=== PATIENT | female | born 1970 | race Caucasian/White ===

== ENCOUNTER 2016-05-02 15:22 | Emergency (ER) | payer OTHER ==
[2016-05-02 16:10] VITALS: BP 139/86
--- NOTE | 2016-05-02 16:58 | UC ---
Back Pain HPI - HPI Summary HPI Summary: 45 yo female with chronic lower back and pelvis pain Discharged from pain specialist requests percocets which she says are the only thing that helps Had CT of abd and pelvis today pain has been present for years states she is seen often by diamond powder mixer (Dr. Moran) and has had a pelvic exam < 6 mos ago has chronic issues starting stream of urine and has lower abd pain while voiding - History of Current Complaint Chief Complaint: UCGU Stated Complaint: ABD & BACK PAIN Time Seen by Provider: 05/02/16 16:07 Hx Obtained From: Patient Hx Last Menstrual Period: 09/21 Onset/Duration: Gradual Onset, Lasting Weeks - years Timing: Constant Severity Initially: Severe Severity Currently: Severe Pain Intensity: 10 Pain Scale Used: 0-10 Numeric Back Pain: Is Diffuse - band like across lower back into pelvis Character: Aching, Throbbing Aggravating: Movement Alleviating: Nothing - but percocet Associated Signs And Symptoms: Negative: Swelling, Redness, Bruising, Fever, Weakness, Numbness, Tingling, Abdominal Pain, Flank Pain, Bladder Incontinence, Bowel Incontinence, Weight Loss, Pain with Weight Bearing - Allergies/Home Medications Allergies/Adverse Reactions: Allergies Allergy/AdvReac Type Severity Reaction Status Date / Time Cefuroxime [From Ceftin] Allergy Rash Verified 05/02/16 16:09 Cephalexin [From Keflex] Allergy Rash Verified 05/02/16 16:09 Nitrofurantoin Allergy Rash Verified 05/02/16 16:09 [From Macrodantin] Sulfa Antibiotics Allergy Hives Verified 05/02/16 16:09 Meperidine [From Demerol HCl] AdvReac Dizziness Verified 05/02/16 16:09 Morphine AdvReac Nausea Verified 05/02/16 16:09 PMH/Surg Hx/FS Hx/Imm Hx Previously Healthy: Yes Endocrine History Of: Reports: Thyroid Disease Denies: Diabetes Cardiovascular History Of: Denies: Cardiac Disorders, Hypertension, Pacemaker/ICD Respiratory History Of: Denies: COPD, Asthma GI/ History Of: Denies: Ulcer, Renal Disease Psychological History Of: Reports: Anxiety, Depression - Surgical History Surgical History: Yes Surgery Procedure, Year, and Place: , LEFT OVARIAN TUMOR REMOVAL/ PARTIAL LEFT OVARY REMOVAL 01/2013, 08/26/14 SUPRACERVICAL HYSTERECTOMY - Family History Known Family History: Positive: Hypertension - Social History Alcohol Use: None Substance Use Type: None Smoking Status (MU): Former Smoker Type: Cigarettes Length of Time of Smoking/Using Tobacco: 3 YRS Have You Smoked in the Last Year: No When Did the Patient Quit Smoking/Using Tobacco: 1989 - Immunization History Most Recent Influenza Vaccination: NONE Most Recent Tetanus Shot: WITHIN 10 YEARS Most Recent Pneumonia Vaccination: NONE Review of Systems Constitutional: Negative Skin: Negative Eyes: Negative ENT: Negative Respiratory: Negative Cardiovascular: Negative Gastrointestinal: Negative Genitourinary: Negative Motor: Negative Neurovascular: Negative Musculoskeletal: Arthralgia, Myalgia Neurological: Negative Psychological: Negative All Other Systems Reviewed And Are Negative: Yes Physical Exam Triage Information Reviewed: Yes Appearance: Well-Appearing, No Pain Distress, Well-Nourished Vital Signs: Initial Vital Signs Temp 99.2 F 05/02/16 15:58 Pulse 57 05/02/16 15:58 Resp 16 05/02/16 15:58 BP 139/86 05/02/16 15:58 Pulse Ox 99 05/02/16 15:58 Vital Signs Reviewed: Yes Eyes: Positive: Conjunctiva Clear ENT: Positive: Hearing grossly normal. Negative: Nasal congestion, Trismus, Muffled/hoarse voice Dental: Negative: Abscess @ Neck: Positive: Supple, Nontender, No Lymphadenopathy Respiratory: Positive: Lungs clear, Normal breath sounds, No respiratory distress, No accessory muscle use Cardiovascular: Positive: RRR, No Murmur Abdomen Description: Positive: Nontender, Soft. Negative: CVA Tenderness (R), CVA Tenderness (L), Distended, Guarding, Hepatomegaly, Peritoneal Signs, Splenomegaly Musculoskeletal: Positive: ROM Intact, No Edema Neurological: Positive: Alert Psychological: Positive: Normal Response To Family Skin Exam: Normal Skin: Positive: rashes Back Pain Course/Dx - Course Course Of Treatment: I suggestted many non narcotic meds most of which she declined stating they don't work. - Differential Dx/Diagnosis Provider Diagnoses: chronic back and pelvic pain of uncertain cause. trouble voiding Discharge - Discharge Plan Condition: Stable Disposition: HOME Prescriptions: Amitriptyline HCl [Elavil] 25 mg PO BEDTIME #14 tab Meloxicam [Mobic] 15 mg PO DAILY #14 tab Patient Education Materials: Pelvic Pain in Women (ED), Chronic Back Pain (ED) Referrals: Masoud Fierro MD [Medical Doctor] - 2 Weeks (see about your urinary issues/ trouble starting stream) Additional Instructions: TO ER FOR NEW or worsening symptoms
== END 2016-05-02 17:07 | disposition home or self-care (01) ==
LOC: UCEAST 15:22
DX: M54.5 Low back pain (principal); R10.2 Pelvic and perineal pain; R39.198 Other difficulties with micturition; Z88.6 Allergy status to analgesic agent; Z88.1 Allergy status to other antibiotic agents; Z88.2 Allergy status to sulfonamides; Z87.891 Personal history of nicotine dependence
CPT/HCPCS: 81002; 99212; G0463

== ENCOUNTER 2017-01-24 13:47 | Emergency (ER) | payer OTHER ==
[2017-01-24 13:53] VITALS: BP 105/64
--- NOTE | 2017-01-24 16:17 | ED ---
Back Pain - HPI Summary HPI Summary: 46F presents with back pain for two years. She states that she has had back pain since she had a hyserectomy two years ago. She has been seen by neurosurgery and by pain management. she was discharged from pain management. Has had MRI and CT scan on back with most recent 4 months ago. no new injury since then. She states pain is bad but has not change recently. Her pain is greatest on left side and radiates down left leg. no numbness or tingling. no loss of bowel or bladder or saddle anaesthesia. no fever. is only taking ibuprofen for pain. able to ambulate. has not seen PT. - History of Current Complaint Chief Complaint: EDAbdPain Stated Complaint: LOWER BACK & ABD PAIN Time Seen by Provider: 01/24/17 15:08 Hx Last Menstrual Period: 09/21 Pain Intensity: 9 - Allergies/Home Medications Allergies/Adverse Reactions: Allergies Allergy/AdvReac Type Severity Reaction Status Date / Time Cefuroxime [From Ceftin] Allergy Rash Verified 01/24/17 13:54 Cephalexin [From Keflex] Allergy Rash Verified 01/24/17 13:54 Nitrofurantoin Allergy Rash Verified 01/24/17 13:54 [From Macrodantin] Sulfa Antibiotics Allergy Hives Verified 01/24/17 13:54 Meperidine [From Demerol HCl] AdvReac Dizziness Verified 01/24/17 13:54 Morphine AdvReac Nausea Verified 01/24/17 13:54 PMH/Surg Hx/FS Hx/Imm Hx Endocrine/Hematology History: Reports: Hx Thyroid Disease, Hx Anemia - ON IRON Denies: Hx Diabetes Cardiovascular History: Denies: Hx Hypertension, Hx Pacemaker/ICD Respiratory History: Denies: Hx Asthma, Hx Chronic Obstructive Pulmonary Disease (COPD) GI History: Reports: Other GI Disorders - COLITIS Denies: Hx Ulcer History: Denies: Hx Renal Disease Musculoskeletal History: Reports: Hx Arthritis - NECK Denies: Hx Scoliosis Sensory History: Denies: Hx Contacts or Glasses, Hx Hearing Aid Opthamlomology History: Denies: Hx Contacts or Glasses Psychiatric History: Reports: Hx Anxiety, Hx Depression, Hx Panic Disorder - Surgical History Surgery Procedure, Year, and Place: , LEFT OVARIAN TUMOR REMOVAL/ PARTIAL LEFT OVARY REMOVAL 01/2013, 08/26/14 SUPRACERVICAL HYSTERECTOMY Hx Anesthesia Reactions: No Infectious Disease History: No Infectious Disease History: Reports: Hx of Known/Suspected MRSA Denies: Hx Hepatitis, Hx Human Immunodeficiency Virus (HIV), Traveled Outside the [place] in Last 30 Days - Family History Known Family History: Positive: Hypertension - Social History Alcohol Use: Rare Substance Use Type: Reports: None Smoking Status (MU): Former Smoker Type: Cigarettes Length of Time of Smoking/Using Tobacco: 3 YRS Have You Smoked in the Last Year: No Review of Systems Negative: Fever Negative: Chest Pain Negative: Shortness Of Breath Positive: Myalgia - back pain All Other Systems Reviewed And Are Negative: Yes Physical Exam Triage Information Reviewed: Yes Vital Signs On Initial Exam: Initial Vitals Temp Pulse Resp BP Pulse Ox 96.9 F 60 16 105/64 98 01/24/17 13:48 01/24/17 13:48 01/24/17 13:48 01/24/17 13:48 01/24/17 13:48 Vital Signs Reviewed: Yes Appearance: Positive: Well-Appearing - in no pain distress Skin: Positive: Warm, Dry Head/Face: Positive: Normal Head/Face Inspection Eyes: Positive: Normal, Conjunctiva Clear Respiratory/Lung Sounds: Positive: Clear to Auscultation, Breath Sounds Present Cardiovascular: Positive: Normal, RRR Musculoskeletal: Positive: Strength/ROM Intact - back, Other - tender over L3-L4 , neg SLR, good pulses Neurological: Positive: Reflexes Intact - patella Psychiatric: Positive: Normal - Lizz Coma Scale Coma Scale Total: 15 Diagnostics - Vital Signs Vital Signs Temp Pulse Resp BP Pulse Ox 01/24/17 13:48 96.9 F 60 16 105/64 98 - Laboratory Lab Statement: Any lab studies that have been ordered have been reviewed, and results considered in the medical decision making process. Back Pain Course/Dx - Course Course Of Treatment: 46F presents with back pain for two years. She states that she has had back pain since she had a hyserectomy two years ago. She has been seen by neurosurgery and by pain management. she was discharged from pain management. Has had MRI and CT scan on back with most recent 4 months ago. no new injury since then. She states pain is bad but has not change recently. Her pain is greatest on left side and radiates down left leg. no numbness or tingling. no loss of bowel or bladder or saddle anaesthesia. no fever. is only taking ibuprofen for pain. able to ambulate. has not seen PT. on exam tenderness lower back L3-L4, neg SLR. discussed that will not prescribe pain medication for this due to being chronic issue. does not want repeat imaging. will try steriod and muscle relaxer. patient understands and agrees with plan. - Diagnoses Differential Diagnosis/HQI/PQRI: Positive: Herniated Disc, Strain, Sprain Provider Diagnoses: Back pain Discharge - Discharge Plan Condition: Good Disposition: HOME Prescriptions: Cyclobenzaprine TAB* [Flexeril 10 MG TAB*] 10 mg PO TID PRN #15 tab PRN Reason: Pain Methylprednisolone [Medrol Dosepak 4 MG*] 4 mg PO .SEE JERARDO INSTRUCTION #1 packet Patient Education Materials: Back Pain (ED) Referrals: [facility] [Provider Group] Ian Churchill MD [Primary Care Provider] - Additional Instructions: Follow directions on package for Medrol pack Take muscle relaxers three times a day Use ibuprofen or Tylenol for pain every 6 hours ice/heat area, move as much as possible Follow up with primary within 5 days Return to ED if develop any new or worsening symptoms
[2017-01-24 16:26] LABS: Urine Bilirubin Negative (Negative); Urine Glucose Negative (Negative); Urine Nitrite Negative (Negative)
== END 2017-01-24 16:28 | disposition home or self-care (01) ==
LOC: ED 13:47
DX: M54.9 Dorsalgia, unspecified (principal); Z87.891 Personal history of nicotine dependence
CPT/HCPCS: 81003; 99282

== ENCOUNTER → 2018-03-07 14:59 | Emergency (ER) | payer OTHER ==
[~2018-03-07 14:59] MED LIST: Fluconazole 100 MG TAB* TAB PO ONE
[2018-03-07 15:48] LABS: ABS Basophils 0 10^3/ul (0-0.2); ABS Eosinophils 0 10^3/ul (0-0.6); ABS Lymphocytes 2.2 10^3/ul (1.0-4.8); ABS Monocytes 0.6 10^3/ul (0-0.8); ABS Neutrophils 6.5 10^3/ul (1.5-7.7); ABS Nucleated RBC 0 10^3/ul; Eosinophil % 0.4 % (0-6); Hematocrit 39 % (35-47); Hemoglobin 13.5 g/dl (12.0-16.0); Lymphocyte % 23.4 % (25-47); Mean Corpuscular HGB Conc 34 g/dl (31-36); Mean Corpuscular Hemoglobin 33 pg (27-31); Mean Corpuscular Volume 97 fL (80-97); Mean Platelet Volume 9.1 fL (7.4-10.4); Nucleated Red Blood Cells % 0; Platelet Count 176 10^3/ul (150-450); Red Blood Count 4.04 10^6/ul (4.00-5.40); Red Cell Distribution Width 13 % (10.5-15); White Blood Count 9.4 10^3/ul (3.5-10.8)
--- NOTE | 2018-03-07 15:53 | ED ---
GI/ HPI - HPI Summary HPI Summary: 47-year-old female presents with vaginal discharge the past couple months. She states that [facility] with [facility]. States that they do cultures and comes back positive for trichomoniasis. She states she is currently on metronidazole for the past week for the Trichomonas. She states she took an increased dose the previous time she took it. She should follow-up with Dr. Carson on Friday. She states she's been having abdominal pain. No nausea vomiting. No urinary symptoms. No diarrhea constipation. 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 She states she has been sexually active once in the past couple months. - History of Current Complaint Chief Complaint: EDUrogenitalProblems Time Seen by Provider: 03/07/18 15:40 Stated Complaint: ABD PAIN Hx Last Menstrual Period: 09/21 Pain Intensity: 10 - Allergy/Home Medications Allergies/Adverse Reactions: Allergies Allergy/AdvReac Type Severity Reaction Status Date / Time cefuroxime [From Ceftin] Allergy Rash Verified 03/07/18 16:23 cephalexin [From Keflex] Allergy Rash Verified 03/07/18 16:23 meperidine [From Demerol] Allergy Dizziness Verified 03/07/18 16:23 morphine Allergy Nausea Verified 03/07/18 16:23 nitrofurantoin Allergy Rash Verified 03/07/18 16:23 [From Macrodantin] Sulfa (Sulfonamide Allergy Hives Verified 03/07/18 16:23 Antibiotics) PMH/Surg Hx/FS Hx/Imm Hx Endocrine/Hematology History: Reports: Hx Thyroid Disease, Hx Anemia - ON IRON Denies: Hx Diabetes Cardiovascular History: Denies: Hx Hypertension, Hx Pacemaker/ICD Respiratory History: Denies: Hx Asthma, Hx Chronic Obstructive Pulmonary Disease (COPD) GI History: Reports: Other GI Disorders - COLITIS Denies: Hx Ulcer History: Denies: Hx Renal Disease Musculoskeletal History: Reports: Hx Arthritis - NECK Denies: Hx Scoliosis Sensory History: Denies: Hx Contacts or Glasses, Hx Hearing Aid Opthamlomology History: Denies: Hx Contacts or Glasses Psychiatric History: Reports: Hx Anxiety, Hx Depression, Hx Panic Disorder - Surgical History Surgery Procedure, Year, and Place: , LEFT OVARIAN TUMOR REMOVAL/ PARTIAL LEFT OVARY REMOVAL 01/2013, 08/26/14 SUPRACERVICAL HYSTERECTOMY Hx Anesthesia Reactions: No Infectious Disease History: No Infectious Disease History: Reports: Hx of Known/Suspected MRSA Denies: Hx Hepatitis, Hx Human Immunodeficiency Virus (HIV), Traveled Outside the [place] in Last 30 Days - Family History Known Family History: Positive: Hypertension - Social History Alcohol Use: Rare Substance Use Type: Reports: None Smoking Status (MU): Former Smoker Type: Cigarettes Length of Time of Smoking/Using Tobacco: 3 YRS Have You Smoked in the Last Year: No Review of Systems Negative: Fever Negative: Chest Pain Negative: Shortness Of Breath Positive: Abdominal Pain, Other - vaginal discharge All Other Systems Reviewed And Are Negative: Yes Physical Exam Triage Information Reviewed: Yes Vital Signs On Initial Exam: Initial Vitals Temp Pulse Resp BP Pulse Ox 97.8 F 71 20 95/52 99 03/07/18 15:00 03/07/18 15:00 03/07/18 15:00 03/07/18 15:00 03/07/18 15:00 Vital Signs Reviewed: Yes Appearance: Positive: Well-Appearing Skin: Positive: Warm, Dry Head/Face: Positive: Normal Head/Face Inspection Eyes: Positive: Normal, Conjunctiva Clear ENT: Positive: Pharynx normal Respiratory/Lung Sounds: Positive: Clear to Auscultation, Breath Sounds Present Cardiovascular: Positive: Normal, RRR Abdomen Description: Positive: Nontender, Soft Bowel Sounds: Positive: Present Pelvic Exam: Positive: External Exam Normal, Bimanual Exam Normal, No Cerv. Motion Tender, Discharge - white. Negative: Tender Adnexa, Tender Uterus Musculoskeletal: Positive: Normal Neurological: Positive: Normal, Disoriented Diagnostics - Vital Signs Vital Signs Temp Pulse Resp BP Pulse Ox 03/07/18 15:00 97.8 F 71 20 95/52 99 - Laboratory Lab Results: Lab Results 03/07/18 Range/Units 15:33 WBC 9.4 (3.5-10.8) 10^3/ul RBC 4.04 (4.00-5.40) 10^6/ul Hgb 13.5 (12.0-16.0) g/dl Hct 39 (35-47) % MCV 97 (80-97) fL MCH 33 H (27-31) pg MCHC 34 (31-36) g/dl RDW 13 (10.5-15) % Plt Count 176 (150-450) 10^3/ul MPV 9.1 (7.4-10.4) fL Neut % (Auto) 69.6 (38-83) % Lymph % (Auto) 23.4 L (25-47) % [place] % (Auto) 6.2 (0-7) % Eos % (Auto) 0.4 (0-6) % Baso % (Auto) 0.4 (0-2) % Absolute Neuts (auto) 6.5 (1.5-7.7) 10^3/ul Absolute Lymphs (auto) 2.2 (1.0-4.8) 10^3/ul Absolute Monos (auto) 0.6 (0-0.8) 10^3/ul Absolute Eos (auto) 0 (0-0.6) 10^3/ul Absolute Basos (auto) 0 (0-0.2) 10^3/ul Absolute Nucleated RBC 0 10^3/ul Nucleated RBC % 0 Result Diagrams: 03/07/18 15:33 03/07/18 15:33 Lab Statement: Any lab studies that have been ordered have been reviewed, and results considered in the medical decision making process. GIGU Course/Dx - Course Course Of Treatment: 47-year-old female presents with vaginal discharge the past couple months. She states that she [facility] with [facility]. States that they do cultures and comes back positive for trichomoniasis. She states she is currently on metronidazole for the past week for the Trichomonas. She states she took an increased dose the previous time she took it. She should follow-up with Dr. Carson on Friday. She states she's been having abdominal pain. No nausea vomiting. No urinary symptoms. No diarrhea constipation. 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 She states she has been sexually active once in the past couple months. on exam nontender abd. has whitish foul smelling discharge. sent cultures but will not be done till friday. told the lab to culture the trich. explained that wbc and crp normal and no CMT so will just give dose of diflucain as with multiple antibiotics likely has a yeast infection on top. told to keep appointment with infectious disease as should have culture results by then to treat her. patient understand and agrees with plan. - Diagnoses Differential Diagnoses - Female: Pelvic Inflammatory Disease, STD, Urinary Tract Infection Provider Diagnoses: Vaginal discharge Discharge - Sign-Out/Discharge Documenting (check all that apply): Patient Departure - Discharge Plan Condition: Good Disposition: HOME Referrals: Ian Churchill MD [Primary Care Provider] - Additional Instructions: Follow up with dr cavanaugh as scheduled Return to ED if develop fever, persistent vomiting or any new or worsening symptoms - Billing Disposition and Condition Condition: GOOD Disposition: Home
[2018-03-07 16:06] LABS: EGFR Non-African American 86.8 (>60)
[2018-03-07 16:13] LABS: Urine Appearance Clear; Urine Blood Negative (Negative); Urine Color Straw; Urine Ketones Negative (Negative); Urine Protein Negative (Negative); Urine Urobilinogen Negative (Negative)
[2018-03-07 17:08] VITALS: BP 103/60
--- NOTE | 2018-03-09 08:49 | PN ---
Progress Note - Progress Note Date of Service: 03/07/18 Note: Patient has been taking metronidazole 1 week for positive Trichomonas She is now also positive for Gardnerella. She will continue to take her at home medication of metronidazole for treatment She is to follow-up with Dr. Rodríguez on Friday and understands this
--- NOTE | 2018-03-09 10:27 | PN ---
Progress Note - Progress Note Date of Service: 03/07/18 Note: Patient returned phone call at 10:30 AM. Patient is made aware of positive Gardnerella and positive Trichomonas. She states her metronidazole that she has been taking has been upsetting her stomach and she would no longer like to take this. She has an appointment with Dr. Rodríguez tomorrow. She is encouraged to not take any medications until she speaks with Dr. Rodríguez tomorrow.
== END | disposition home or self-care (01) ==
LOC: ED 14:59
DX: A59.01 Trichomonal vulvovaginitis (principal); E07.9 Disorder of thyroid, unspecified; D64.9 Anemia, unspecified; F32.9 Major depressive disorder, single episode, unspecified; F41.9 Anxiety disorder, unspecified; Z87.891 Personal history of nicotine dependence; B96.89 Other specified bacterial agents as the cause of diseases classified elsewhere
CPT/HCPCS: 36415; 80053; 81003; 83690; 84702; 85025; 86140; 87070; 87077; 87480; 87491; 87510; 87591; 87660; 99282; A9270-GY

== ENCOUNTER 2018-05-04 15:46 | Emergency (ER) | payer OTHER ==
[2018-05-04 18:22] LABS: ABS Basophils 0 10^3/ul (0-0.2); ABS Eosinophils 0.1 10^3/ul (0-0.6); ABS Lymphocytes 2.6 10^3/ul (1.0-4.8); ABS Monocytes 0.6 10^3/ul (0-0.8); ABS Neutrophils 5.2 10^3/ul (1.5-7.7); ABS Nucleated RBC 0 10^3/ul; Hematocrit 37 % (35-47); Hemoglobin 12.7 g/dl (12.0-16.0); Lymphocyte % 30.2 %; Mean Corpuscular HGB Conc 34 g/dl (31-36); Mean Corpuscular Hemoglobin 33 pg (27-31); Mean Corpuscular Volume 96 fL (80-97); Mean Platelet Volume 8.9 fL (7.4-10.4); Nucleated Red Blood Cells % 0; Platelet Count 161 10^3/ul (150-450); Red Blood Count 3.83 10^6/ul (4.00-5.40); Red Cell Distribution Width 12 % (10.5-15); White Blood Count 8.5 10^3/ul (3.5-10.8)
[2018-05-04 18:41] LABS: ALT 10 U/L (7-52); AST 12 U/L (13-39); Albumin 4.3 g/dL (3.2-5.2); Alkaline Phosphatase 33 U/L (34-104); Anion Gap 5 mmol/L (2-11); BUN/Creatinine Ratio 22.4 (8-20); Blood Urea Nitrogen 15 mg/dL (6-24); C Reactive Protein < 1.00 mg/L (<8.01); CO2 Carbon Dioxide 27 mmol/L (22-32); Calcium 8.9 mg/dL (8.6-10.3); Chloride 106 mmol/L (101-111); EGFR Non-African American 94.3 (>60); Globulin 2.1 g/dL (2-4); Glucose 99 mg/dL (70-100); Potassium 3.5 mmol/L (3.5-5.0); Sodium 138 mmol/L (135-145); Total Protein 6.4 g/dL (6.4-8.9)
[2018-05-04 18:47] LABS: HCG Pregnancy < 0.60 mIU/mL
[2018-05-04] MEDS ORDERED: Iohexol 300* (CONTRAST) 10 ML SDV IV ONE (19:18)
--- NOTE | 2018-05-04 21:41 | ED ---
Abdominal Pain/Female - HPI Summary HPI Summary: Patient complains of acute on chronic lower abdominal pain, recurrent trichomonas infections, current BV infection. Abdominal pain described as constant, sharp, bilateral lower abdomen, associated with nausea. Also complains of vaginal discharge and pain. Denies fever, cough, sore throat, CP, SOB, V/D, change in urine, change in BM. Patient states chronic lower abdominal pain since hysterectomy 3 years ago. States recurrent trichomonas infection 2 months despite multiple courses of antibiotics. Patient has been evaluated by [facility]EL[facility], by GI, by Dr. Alli JEFFREY. Medical history is hypothyroid. Abdominal surgical history is . - History of Current Complaint Chief Complaint: EDAbdPain Stated Complaint: ABD PAIN Time Seen by Provider: 05/04/18 17:08 Hx Obtained From: Patient Hx Last Menstrual Period: 09/21 Onset/Duration: Other Timing: Constant Severity Initially: Severe Severity Currently: Severe Pain Intensity: 10 Pain Scale Used: 0-10 Numeric Location: Discrete At: RLQ, Discrete At: LLQ, Suprapubic Radiates: No Character: Sharp Aggravating Factor(s): Movement Alleviating Factor(s): Nothing Associated Signs and Symptoms: Positive: Vaginal Discharge, Nausea Allergies/Adverse Reactions: Allergies Allergy/AdvReac Type Severity Reaction Status Date / Time cefuroxime [From Ceftin] Allergy Rash Verified 05/04/18 15:54 cephalexin [From Keflex] Allergy Rash Verified 05/04/18 15:54 meperidine [From Demerol] Allergy Dizziness Verified 05/04/18 15:54 morphine Allergy Nausea Verified 05/04/18 15:54 nitrofurantoin Allergy Rash Verified 05/04/18 15:54 [From Macrodantin] Sulfa (Sulfonamide Allergy Hives Verified 05/04/18 15:54 Antibiotics) PMH/Surg Hx/FS Hx/Imm Hx Endocrine/Hematology History: Reports: Hx Thyroid Disease, Hx Anemia - ON IRON Denies: Hx Diabetes Cardiovascular History: Denies: Hx Hypertension, Hx Pacemaker/ICD Respiratory History: Denies: Hx Asthma, Hx Chronic Obstructive Pulmonary Disease (COPD) GI History: Reports: Other GI Disorders - COLITIS Denies: Hx Ulcer History: Denies: Hx Renal Disease Musculoskeletal History: Reports: Hx Arthritis - NECK Denies: Hx Scoliosis Sensory History: Denies: Hx Contacts or Glasses, Hx Hearing Aid Opthamlomology History: Denies: Hx Contacts or Glasses Psychiatric History: Reports: Hx Anxiety, Hx Depression, Hx Panic Disorder - Surgical History Surgery Procedure, Year, and Place: , LEFT OVARIAN TUMOR REMOVAL/ PARTIAL LEFT OVARY REMOVAL 01/2013, 08/26/14 SUPRACERVICAL HYSTERECTOMY Hx Anesthesia Reactions: No Infectious Disease History: No Infectious Disease History: Reports: Hx of Known/Suspected MRSA Denies: Hx Hepatitis, Hx Human Immunodeficiency Virus (HIV), Traveled Outside the [place] in Last 30 Days - Family History Known Family History: Positive: Hypertension - Social History Alcohol Use: Rare Substance Use Type: Reports: None Smoking Status (MU): Former Smoker Type: Cigarettes Length of Time of Smoking/Using Tobacco: 3 YRS Have You Smoked in the Last Year: No Review of Systems Constitutional: Negative Eyes: Negative ENT: Negative Cardiovascular: Negative Respiratory: Negative Positive: Abdominal Pain, Nausea Genitourinary: Negative Musculoskeletal: Negative Skin: Negative Neurological: Negative Psychological: Normal All Other Systems Reviewed And Are Negative: Yes Physical Exam - Summary Physical Exam Summary: Lower abdomen tender bilaterally. Abdominal exam otherwise unremarkable. Pelvic exam remarkable for pain during exam and greenish yellow discharge. Pelvic exam otherwise unremarkable. Triage Information Reviewed: Yes Vital Signs On Initial Exam: Initial Vitals Temp Pulse Resp BP Pulse Ox 98.3 F 65 15 99/72 100 05/04/18 15:50 05/04/18 15:50 05/04/18 15:50 05/04/18 15:50 05/04/18 15:50 Vital Signs Reviewed: Yes Appearance: Positive: Well-Appearing Skin: Positive: Warm Head/Face: Positive: Normal Head/Face Inspection Eyes: Positive: Normal Neck: Positive: Supple Respiratory/Lung Sounds: Positive: Clear to Auscultation Cardiovascular: Positive: Normal Abdomen Description: Positive: Other: Pelvic Exam: Positive: External Exam Normal, No Cerv. Motion Tender, No Masses, Discharge, Tender Adnexa. Negative: Active Bleeding, Blood, Cervicitis, Lesions , Mass, Tender w/ Cervical Motion, Tender Uterus, Ulcers Musculoskeletal: Positive: Normal Neurological: Positive: Normal Psychiatric: Positive: Normal AVPU Assessment: Alert - [place] Coma Scale Best Eye Response: 4 - Spontaneous Best Motor Response: 6 - Obeys Commands Best Verbal Response: 5 - Oriented Coma Scale Total: 15 Diagnostics - Vital Signs Vital Signs Temp Pulse Resp BP Pulse Ox 01/14/19 15:50 98.3 F 65 15 99/72 100 - Laboratory Lab Results: Lab Results 05/04/18 05/04/18 Range/Units 18:15 18:15 WBC 8.5 (3.5-10.8) 10^3/ul RBC 3.83 L (4.00-5.40) 10^6/ul Hgb 12.7 (12.0-16.0) g/dl Hct 37 (35-47) % MCV 96 (80-97) fL MCH 33 H (27-31) pg MCHC 34 (31-36) g/dl RDW 12 (10.5-15) % Plt Count 161 (150-450) 10^3/ul MPV 8.9 (7.4-10.4) fL Neut % (Auto) 60.9 % Lymph % (Auto) 30.2 % [place] % (Auto) 7.5 % Eos % (Auto) 1.0 % Baso % (Auto) 0.4 % Absolute Neuts (auto) 5.2 (1.5-7.7) 10^3/ul Absolute Lymphs (auto) 2.6 (1.0-4.8) 10^3/ul Absolute Monos (auto) 0.6 (0-0.8) 10^3/ul Absolute Eos (auto) 0.1 (0-0.6) 10^3/ul Absolute Basos (auto) 0 (0-0.2) 10^3/ul Absolute Nucleated RBC 0 10^3/ul Nucleated RBC % 0 Sodium 138 (135-145) mmol/L Potassium 3.5 (3.5-5.0) mmol/L Chloride 106 (101-111) mmol/L Carbon Dioxide 27 (22-32) mmol/L Anion Gap 5 (2-11) mmol/L BUN 15 (6-24) mg/dL Creatinine 0.67 (0.51-0.95) mg/dL Est GFR ( Amer) 114.2 (>60) Est GFR (Non-Af Amer) 94.3 (>60) BUN/Creatinine Ratio 22.4 H (8-20) Glucose 99 (70-100) mg/dL Calcium 8.9 (8.6-10.3) mg/dL Total Bilirubin 0.40 (0.2-1.0) mg/dL AST 12 L (13-39) U/L ALT 10 (7-52) U/L Alkaline Phosphatase 33 L (34-104) U/L C-Reactive Protein < 1.00 (<8.01) mg/L Total Protein 6.4 (6.4-8.9) g/dL Albumin 4.3 (3.2-5.2) g/dL Globulin 2.1 (2-4) g/dL Albumin/Globulin Ratio 2.0 (1-3) Lipase 25 (11.0-82.0) U/L Beta HCG, Quant < 0.60 mIU/mL Result Diagrams: 05/04/18 18:15 05/04/18 18:15 Lab Statement: Any lab studies that have been ordered have been reviewed, and results considered in the medical decision making process. Abdominal Pain Fem Course/Dx - Course Course Of Treatment: Patient complains of acute on chronic lower abdominal pain , recurrent trichomonas infections, current BV infection. Abdominal pain described as constant, sharp, bilateral lower abdomen, associated with nausea. Also complains of vaginal discharge and pain. Denies fever, cough, sore throat , CP, SOB, V/D, change in urine, change in BM. Patient states chronic lower abdominal pain since hysterectomy 3 years ago. States recurrent trichomonas infection 2 months despite multiple courses of antibiotics. Patient has been evaluated by [facility]EL[facility], by GI, by Dr. Alli JEFFREY. Medical history is hypothyroid. Abdominal surgical history is . Physical exam:Lower abdomen tender bilaterally. Abdominal exam otherwise unremarkable. Pelvic exam remarkable for pain during exam and greenish yellow discharge. Pelvic exam otherwise unremarkable. Vital signs within normal limits. Labs unremarkable. CT abdomen and pelvis positive for diverticulitis. Cultures from pelvic exam pending. Patient started on Cipro and Flagyl here in the ED. Rx for same. - Diagnoses Provider Diagnoses: Diverticulitis, Vaginitis Discharge - Sign-Out/Discharge Documenting (check all that apply): Patient Departure - Discharge Plan Condition: Stable Disposition: HOME Prescriptions: Ciprofloxacin [Cipro 500 MG/5 ML SUSP] 500 mg PO BID 10 Days #100 ml Ciprofloxacin HCl [Cipro] 500 mg PO BID 10 Days #20 tablet metroNIDAZOLE [Flagyl 500 MG TAB] 500 mg PO TID 10 Days #30 tab Patient Education Materials: Diverticulitis (ED), Diverticulitis Diet (ED) Referrals: Ian Churchill MD [Primary Care Provider] - Additional Instructions: 2 forms of Cipro have been sent to the pharmacy along with the prescription for Flagyl. Use of one form or the other of the Cipro. Do not take both. You will be called regarding the results of your pelvic exam when cultures are completed. Return to the ED for any new or worsening symptoms. - Billing Disposition and Condition Condition: STABLE Disposition: Home
[2018-05-04] MEDS ORDERED: metroNIDAZOLE TAB* 250 MG PO ONE (21:59)
[2018-05-04] MEDS ORDERED: Ciprofloxacin TAB* 500 MG PO ONE (21:59)
[2018-05-04 22:31] VITALS: BP 106/61
== END 2018-05-04 22:30 | disposition home or self-care (01) ==
LOC: ED 15:46
DX: K57.92 Diverticulitis of intestine, part unspecified, without perforation or abscess without bleeding (principal); N76.0 Acute vaginitis; R10.30 Lower abdominal pain, unspecified; Z87.891 Personal history of nicotine dependence; Z88.2 Allergy status to sulfonamides
CPT/HCPCS: 36415; 74177; 80053; 83690; 84702; 85025; 86140; 87480; 87491; 87510; 87591; 87661; 99282; A9270-GY; Q9967

== ENCOUNTER 2018-11-23 13:42 | Emergency (ER) | payer OTHER ==
--- NOTE | 2018-11-23 15:20 | ED ---
GI/ HPI - HPI Summary HPI Summary: Patient complains of intermittent bright red rectal bleeding starting yesterday. 3 episodes yesterday. One episode today. Patient has history of chronic abdominal pain, chronic rectal pain but states pain in both sides has increased over the past 2 days. Admits to associated diarrhea, nausea. Denies fever, cough, sore throat, CP, SOB, vomiting, urine symptoms. She also admits to recurrent BV infections, currently awaiting appointment with TECHNICAL APPLICATIONS SPECIALIST specialist to evaluate. History of IBS, diverticulitis, ischemic colitis. Abdominal surgical history is partial hysterectomy, . - History of Current Complaint Chief Complaint: EDGIBleed Time Seen by Provider: 11/23/18 15:17 Stated Complaint: POSSIBLE GI BLEED Hx Obtained From: Patient Hx Last Menstrual Period: 09/21 Onset/Duration: Started Days Ago Timing: Constant Severity: Severe Current Severity: Severe Vaginal Bleeding Description: Bright Red Pain Intensity: 9 Location of Pain: Diffuse Pain Characteristics: Cramping Associated Signs and Symptoms: Positive: Nausea, Rectal Pain, Bright Red Blood w /Stool, Diarrhea, Abdominal Pain - Allergy/Home Medications Allergies/Adverse Reactions: Allergies Allergy/AdvReac Type Severity Reaction Status Date / Time cefuroxime [From Ceftin] Allergy Rash Verified 11/23/18 13:56 cephalexin [From Keflex] Allergy Rash Verified 11/23/18 13:56 dicyclomine Allergy Unknown Verified 11/23/18 13:56 Reaction Details meperidine [From Demerol] Allergy Dizziness Verified 11/23/18 13:56 morphine Allergy Nausea Verified 11/23/18 13:56 nitrofurantoin Allergy Rash Verified 11/23/18 13:56 [From Macrodantin] Sulfa (Sulfonamide Allergy Hives Verified 11/23/18 13:56 Antibiotics) PMH/Surg Hx/FS Hx/Imm Hx Endocrine/Hematology History: Reports: Hx Thyroid Disease, Hx Anemia - ON IRON Denies: Hx Diabetes Cardiovascular History: Denies: Hx Hypertension, Hx Pacemaker/ICD Respiratory History: Denies: Hx Asthma, Hx Chronic Obstructive Pulmonary Disease (COPD) GI History: Reports: Other GI Disorders - COLITIS Denies: Hx Ulcer History: Denies: Hx Renal Disease Musculoskeletal History: Reports: Hx Arthritis - NECK Denies: Hx Scoliosis Sensory History: Denies: Hx Contacts or Glasses, Hx Hearing Aid Opthamlomology History: Denies: Hx Contacts or Glasses Psychiatric History: Reports: Hx Anxiety, Hx Depression, Hx Panic Disorder - Surgical History Surgery Procedure, Year, and Place: , LEFT OVARIAN TUMOR REMOVAL/ PARTIAL LEFT OVARY REMOVAL 01/2013, 08/26/14 SUPRACERVICAL HYSTERECTOMY Hx Anesthesia Reactions: No Infectious Disease History: No Infectious Disease History: Reports: Hx of Known/Suspected MRSA Denies: Hx Hepatitis, Hx Human Immunodeficiency Virus (HIV), Traveled Outside the [place] in Last 30 Days - Family History Known Family History: Positive: Hypertension - Social History Alcohol Use: Rare Substance Use Type: Reports: None Smoking Status (MU): Former Smoker Type: Cigarettes Length of Time of Smoking/Using Tobacco: 3 YRS Have You Smoked in the Last Year: No Review of Systems Constitutional: Negative Eyes: Negative ENT: Negative Cardiovascular: Negative Respiratory: Negative Positive: Abdominal Pain, Diarrhea, Nausea Genitourinary: Negative Musculoskeletal: Negative Skin: Negative Neurological: Negative Psychological: Normal All Other Systems Reviewed And Are Negative: Yes Physical Exam - Summary Physical Exam Summary: Abdomen mildly tender diffusely. No evidence of fissure or external bleeding or hemorrhoids on a external rectal exam. Triage Information Reviewed: Yes Vital Signs On Initial Exam: Initial Vitals Temp Pulse Resp BP Pulse Ox 98.5 F 60 16 125/93 99 11/23/18 13:49 11/23/18 13:49 11/23/18 13:49 11/23/18 13:49 11/23/18 13:49 Vital Signs Reviewed: Yes Appearance: Positive: Well-Appearing Skin: Positive: Warm Head/Face: Positive: Normal Head/Face Inspection Eyes: Positive: Normal Neck: Positive: Supple Respiratory/Lung Sounds: Positive: Clear to Auscultation Cardiovascular: Positive: Normal Abdomen Description: Positive: Other: Musculoskeletal: Positive: Normal Neurological: Positive: Normal Psychiatric: Positive: Normal AVPU Assessment: Alert - [place] Coma Scale Best Eye Response: 4 - Spontaneous Best Motor Response: 6 - Obeys Commands Best Verbal Response: 5 - Oriented Coma Scale Total: 15 Diagnostics - Vital Signs Vital Signs Temp Pulse Resp BP Pulse Ox 11/23/18 13:49 98.5 F 60 16 125/93 99 - Laboratory Result Diagrams: 11/23/18 15:50 11/23/18 15:50 Lab Statement: Any lab studies that have been ordered have been reviewed, and results considered in the medical decision making process. GIGU Course/Dx - Course Course Of Treatment: Patient complains of intermittent bright red rectal bleeding starting yesterday. 3 episodes yesterday. One episode today. Patient has history of chronic abdominal pain, chronic rectal pain but states pain in both sides has increased over the past 2 days. Admits to associated diarrhea, nausea. Denies fever, cough, sore throat, CP, SOB, vomiting, urine symptoms. She also admits to recurrent BV infections, currently awaiting appointment with TECHNICAL [employer]PLICATIONS SPECIALIST specialist to evaluate. History of IBS, diverticulitis , ischemic colitis. Abdominal surgical history is partial hysterectomy, C- section. Vital signs within normal limits. Labs unremarkable. CT abdomen and pelvis positive only for stool burden. Patient advised to follow up with her GI and/or return to the ED for any worsening of symptoms. Patient understands unopposable plan. - Diagnoses Provider Diagnoses: GI bleed Discharge - Sign-Out/Discharge Documenting (check all that apply): Patient Departure Patient Received Moderate/Deep Sedation with Procedure: No - Discharge Plan Condition: Stable Disposition: HOME Prescriptions: HYDROcodone/ACETAMIN 5-325 MG* [[place] 5-325 TAB*] 1 tab PO Q6H PRN 2 Days #4 tab MDD 4 tabs PRN Reason: Pain Patient Education Materials: Gastrointestinal Bleeding (ED), Rectal Bleeding ( ED) Referrals: Ian Churchill MD [Primary Care Provider] - Additional Instructions: follow-up with your clerical adjuster for further evaluation of gastrointestinal bleeding. Return to the ED for any worsening symptoms. - Billing Disposition and Condition Condition: STABLE Disposition: Home
[2018-11-23 16:01] LABS: ABS Eosinophils 0.1 10^3/ul (0-0.6); ABS Lymphocytes 1.9 10^3/ul (1.0-4.8); ABS Monocytes 0.4 10^3/ul (0-0.8); ABS Neutrophils 3.9 10^3/ul (1.5-7.7); Eosinophil % 1.2 %; Hematocrit 35 % (35-47); Hemoglobin 12.6 g/dL (12.0-16.0); Lymphocyte % 30.1 %; Mean Corpuscular HGB Conc 36 g/dL (31-36); Mean Corpuscular Hemoglobin 34 pg (27-31); Mean Corpuscular Volume 95 fL (80-97); Mean Platelet Volume 9.4 fL (7.4-10.4); Nucleated Red Blood Cells % 0.1; Platelet Count 137 10^3/uL (150-450); Red Blood Count 3.69 10^6 /uL (3.70-4.87); Red Cell Distribution Width 13 % (10-15); White Blood Count 6.3 10^3/uL (3.5-10.8)
[2018-11-23 16:10] LABS: INR 1.18 (0.82-1.09)
[2018-11-23] MEDS ORDERED: HYDROcodone/ACETAMIN 5-325 MG* 1 TAB PO ONE (16:16)
[2018-11-23] MEDS ORDERED: Ondansetron ODT TAB* 4 MG PO ONE (16:17)
[2018-11-23 16:20] LABS: HCG Pregnancy < 0.60 mIU/mL
[2018-11-23 16:35] LABS: ALT 14 U/L (7-52); AST 17 U/L (13-39); Albumin 4.2 g/dL (3.2-5.2); Albumin/Globulin Ratio 1.7 (1-3); Alkaline Phosphatase 38 U/L (34-104); Anion Gap 7 mmol/L (2-11); BUN/Creatinine Ratio 11.4 (8-20); Blood Urea Nitrogen 8 mg/dL (6-24); C Reactive Protein < 1.00 mg/L (<8.01); CO2 Carbon Dioxide 27 mmol/L (22-32); Calcium 8.6 mg/dL (8.6-10.3); Chloride 106 mmol/L (101-111); EGFR African American 108.1 (>60); EGFR Non-African American 89.3 (>60); Globulin 2.5 g/dL (2-4); Glucose 85 mg/dL (70-100); Potassium 3.4 mmol/L (3.5-5.0); Sodium 140 mmol/L (135-145); Total Protein 6.7 g/dL (6.4-8.9)
[2018-11-23] MEDS ORDERED: Iohexol 300* (CONTRAST) 10 ML SDV IV ONE (16:48)
[2018-11-23 18:04] VITALS: BP 113/74
== END 2018-11-23 18:04 | disposition home or self-care (01) ==
LOC: ED 13:42
DX: K92.2 Gastrointestinal hemorrhage, unspecified (principal); R10.817 Generalized abdominal tenderness; R19.7 Diarrhea, unspecified; R11.0 Nausea; D64.9 Anemia, unspecified; Z90.711 Acquired absence of uterus with remaining cervical stump; Z88.1 Allergy status to other antibiotic agents; Z88.5 Allergy status to narcotic agent; Z88.2 Allergy status to sulfonamides; Z87.891 Personal history of nicotine dependence
CPT/HCPCS: 36415; 74177; 80053; 82270; 84702; 85025; 85610; 86140; 99283; A9270-GY; Q9967

== ENCOUNTER 2019-04-11 14:50 | Emergency (ER) | payer OTHER ==
--- NOTE | 2019-04-11 14:59 | UC ---
Skin Complaint HPI - HPI Summary HPI Summary: 48 yo female presents with ?abscess on leg. She tells me that about 5 days ago she had a small pimple appearing area on her left thigh. She popped it. Since that time the area has gotten larger and developed a red warm area surrounding the site. She mentions that she has a history of MRSA. Denies injury to the area , fevers, or chills - History of Current Complaint Time Seen by Provider: 04/11/19 14:58 Stated Complaint: RED AREA ON LEG Hx Obtained From: Patient Hx Last Menstrual Period: 09/21 Onset/Duration: Gradual Onset Onset Severity: Mild Current Severity: Mild Pain Intensity: 4 Pain Scale Used: 0-10 Numeric - Allergy/Home Medications Allergies/Adverse Reactions: Allergies Allergy/AdvReac Type Severity Reaction Status Date / Time cefuroxime [From Ceftin] Allergy Rash Verified 12/13/18 10:58 cephalexin [From Keflex] Allergy Rash Verified 12/13/18 10:58 dicyclomine Allergy Unknown Verified 12/13/18 10:58 Reaction Details meperidine [From Demerol] Allergy Dizziness Verified 12/13/18 10:58 morphine Allergy Nausea Verified 12/13/18 10:58 nitrofurantoin Allergy Rash Verified 12/13/18 10:58 [From Macrodantin] Sulfa (Sulfonamide Allergy Hives Verified 12/13/18 10:58 Antibiotics) Home Medications: Home Medications buPROPion TAB* [Wellbutrin TAB*] 75 mg PO DAILY 04/11/19 [History Confirmed ] PMH/Surg Hx/FS Hx/Imm Hx - Additional Past Medical History Additional PMH: IBS Psychological History: Anxiety - Surgical History Surgical History: Yes Surgery Procedure, Year, and Place: , LEFT OVARIAN TUMOR REMOVAL/ PARTIAL LEFT OVARY REMOVAL 01/2013, 08/26/14 SUPRACERVICAL HYSTERECTOMY - Family History Known Family History: Positive: Hypertension - Social History Lives: With Family Alcohol Use: Rare Substance Use Type: None Smoking Status (MU): Former Smoker Type: Cigarettes Length of Time of Smoking/Using Tobacco: 3 YRS Have You Smoked in the Last Year: No When Did the Patient Quit Smoking/Using Tobacco: 1989 - Immunization History Most Recent Influenza Vaccination: NONE Most Recent Tetanus Shot: WITHIN 10 YEARS Most Recent Pneumonia Vaccination: NONE Review of Systems All Other Systems Reviewed And Are Negative: No Constitutional: Positive: Negative Skin: Positive: Other - Red area on leg Respiratory: Positive: Negative Cardiovascular: Positive: Negative Neurological: Positive: Negative Psychological: Positive: Negative Physical Exam - Summary Physical Exam Summary: GENERAL: NAD. WDWN. No pain distress. SKIN: LEFT THIGH: Anteromedial aspect with 1.5cm area of firmness and moderate erythema. Mild TTP. Large ~15.0cm area of mild erythema and faint warmth surrounding the abscess and extending down the anteromedial thigh. No open wounds or drainage. NECK: Supple. Nontender. No lymphadenopathy. CHEST: No accessory muscle use. Breathing comfortably and in no distress. CV: Pulses intact. Cap refill <2seconds NEURO: Alert. PSYCH: Age appropriate behavior. Triage Information Reviewed: Yes Vital Signs: Vital Signs: Temp Pulse Resp BP Pulse Ox 97.5 F 77 18 106/59 97 04/11/19 15:01 04/11/19 15:01 04/11/19 15:01 04/11/19 15:01 04/11/19 15:01 Vital Signs Reviewed: Yes Course/Dx - Course Course Of Treatment: Abscess - no ready for I&D today. Given her hx of MRSA would, ideally, prefer she be on Bactrim or Clindamycin, but she is allergic to sulfa and states that she cannot take clindamycin because it makes her stomach too upset. Will rx for doxycycline and have her return for I&D if the area comes to a head in the next few days. - Diagnoses Provider Diagnosis: Abscess of left thigh Discharge ED - Sign-Out/Discharge Documenting (check all that apply): Patient Departure All imaging exams completed and their final reports reviewed: No Studies - Discharge Plan Condition: Stable Disposition: HOME Prescriptions: DOXYcycline CAP(*) [DOXYcycline 100MG CAP(*)] 100 mg PO BID #14 cap Patient Education Materials: Abscess (ED) Referrals: Ian Churchill MD [Primary Care Provider] - Additional Instructions: If you develop a fever, shortness of breath, chest pain, new or worsening symptoms - please call your PCP or go to the ED immediately. The boil on your leg may come to a "head" in the next few days - if this happens , please return to have this drained - Billing Disposition and Condition Condition: STABLE Disposition: Home
[2019-04-11 15:07] VITALS: BP 106/59
== END 2019-04-11 15:22 | disposition home or self-care (01) ==
LOC: UCEAST 14:50
DX: L02.416 Cutaneous abscess of left lower limb (principal); K58.9 Irritable bowel syndrome, unspecified; Z88.2 Allergy status to sulfonamides; Z88.1 Allergy status to other antibiotic agents; Z88.5 Allergy status to narcotic agent; Z88.8 Allergy status to other drugs, medicaments and biological substances; Z87.891 Personal history of nicotine dependence
CPT/HCPCS: 99212; G0463

== ENCOUNTER 2022-02-13 08:34 | Observation (INO) ==
[~2022-02-13 08:34] MED LIST changes: +Buffered Lidocaine 1% SYRIN 1 ml INTRADERM ONE; -Fluconazole 100 MG TAB* TAB PO ONE; +Lactated Ringers 1000 ml BAG 1,000 ML IV SCH; +Naloxone 0.4 mg VIAL 0.4 mg/ml 1 ml VIAL IV PRN; +Ondansetron 4 mg VIAL 2 MG/ML 2 ml VIAL IV PRN
[2022-02-13] MEDS ORDERED: Rocuronium 50 mg VIAL 10 mg/ml 5 ml VIAL (50 mg) ONE (09:25)
[2022-02-13] MEDS ORDERED: Midazolam 2 mg/2 ml VIAL 1 mg/ml 2 ml VIAL (2 mg) ONE (09:25)
[2022-02-13] MEDS ORDERED: fentaNYL 250 mcg/5 ml 50 MCG/ML 5 ml VIAL (250 MCG) ONE (09:26)
[2022-02-13] MEDS ORDERED: Propofol 10 MG/ML 20 ML BTL ONE (09:27)
[2022-02-13] MEDS ORDERED: Lidocaine 2% PF 5 ML VIAL ONE (09:27)
[2022-02-13] MEDS ORDERED: Clindamycin 900 MG/D5W BAG 900 MG/50 ML BAG IVPB ONE (09:43)
[2022-02-13] MEDS ORDERED: Thrombin 5,000 UNITS 1 APPLIC KIT - topical use - TOPICAL ONE ×2 (09:58→14:02)
[2022-02-13] MEDS ORDERED: Gelfoam 12-7 ADSORBABL SPONGE ONE (09:58)
[2022-02-13] MEDS ORDERED: Lidocaine 2% w EPI 1:100,000 20 ML MDV VIAL ONE (09:59)
[2022-02-13] MEDS ORDERED: ceFAZolin VIAL VIAL ONE (09:59)
[2022-02-13] MEDS ORDERED: Ondansetron 4 mg VIAL 2 MG/ML 2 ml VIAL ONE (11:33)
[2022-02-13] MEDS ORDERED: Dexamethasone IV 4 MG/ML VIAL 1 ml VIAL ONE (11:33)
[2022-02-13] MEDS ORDERED: Gelfoam Sponge SIZE 100 SPONGE ONE (11:35)
[2022-02-13] MEDS ORDERED: HYDROmorphone 0.5 MG/0.5 ML SYRINGE ONE (12:43)
[2022-02-13] MEDS ORDERED: Acetaminophen IV 1 GM/100ML 1,000 MG/100 ML BAG IV ONE (14:24)
[2022-02-13] MEDS ORDERED: Ondansetron 4 mg VIAL 2 MG/ML 2 ml VIAL IV PRN (14:58)
[2022-02-13] MEDS ORDERED: Lactated Ringers 1000 ml BAG 1,000 ML IV SCH (15:00)
[2022-02-13] MEDS ORDERED: Morphine 2 MG/ML SYRINGE IV PRN (15:05)
[2022-02-13] MEDS ORDERED: Albuterol HFA INHALER 8 gm MDI INH PRN (15:07)
[2022-02-13] MEDS ORDERED: fentaNYL 100 mcg/2 ml 50 MCG/ML VIAL ONE (15:16)
[2022-02-13] MEDS: fentaNYL 100 mcg/2 ml 50 MCG/ML VIAL IV PRN ×4 (15:23→16:03)
[2022-02-13] MEDS ORDERED: Naloxone 0.4 mg VIAL 0.4 mg/ml 1 ml VIAL IV PRN (15:37)
[2022-02-13] MEDS ORDERED: HYDROmorphone 1 MG/1 ML SYRINGE IV PRN (15:37)
[2022-02-13] MEDS ORDERED: HYDROmorphone 1 MG/1 ML SYRINGE ONE (16:26)
[2022-02-14 07:58] LABS: Hematocrit 27 % (35-47); Mean Corpuscular HGB Conc 34 g/dL (31-36); Mean Corpuscular Hemoglobin 33 pg (27-31); Mean Corpuscular Volume 96 fL (80-97); Mean Platelet Volume 8.8 fL (7.4-10.4); Platelet Count 143 10^3/uL (150-450); Red Blood Count 2.78 10^6 /uL (3.70-4.87); Red Cell Distribution Width 13 % (10-15); White Blood Count 13.6 10^3/uL (3.5-10.8)
[2022-02-14] MEDS: Lansoprazole SUSP ORALSYR 3 MG/ML PO SCH ×2 (10:35→21:03)
[2022-02-14] MEDS: HYDROmorphone 0.5 MG/0.5 ML SYRINGE IV SLOW PU PRN ×2 (13:59→18:20)
[2022-02-15 06:46] LABS: Hematocrit 25 % (35-47); Hemoglobin 8.7 g/dL (12.0-16.0); Mean Corpuscular HGB Conc 35 g/dL (31-36); Mean Corpuscular Hemoglobin 34 pg (27-31); Mean Corpuscular Volume 97 fL (80-97); Mean Platelet Volume 9.2 fL (7.4-10.4); Platelet Count 113 10^3/uL (150-450); Red Blood Count 2.58 10^6 /uL (3.70-4.87); Red Cell Distribution Width 13 % (10-15); White Blood Count 9.9 10^3/uL (3.5-10.8)
[2022-02-15] MEDS: Lansoprazole SUSP ORALSYR 3 MG/ML PO SCH (08:03)
[2022-02-15] MEDS ORDERED: Docusate LIQ 100 MG/10 ML UDC PO PRN (09:00)
[2022-02-15 19:07] VITALS: BP 104/62
== END 2022-02-15 20:05 | disposition home or self-care (01) ==
LOC: OR 08:34 → SSU 17:51 → INTOOBSV 17:51
PROVIDERS: ADMIT Neurological Surgery; ATTEND Neurological Surgery